=== PATIENT | female | born 1985 | race Caucasian/White ===

== ENCOUNTER 2023-08-02 10:57 | Outpatient (CLI) | payer BC, SELFPAY | END 2023-08-02 10:58 | disposition home or self-care (01) | PROVIDERS: PCP Nurse Practitioner Family; Visit Provider Nurse Practitioner Family | DX: Z00.00 Encounter for general adult medical examination without abnormal findings (principal); Z13.6 Encounter for screening for cardiovascular disorders; Z13.1 Encounter for screening for diabetes mellitus | CPT/HCPCS: 80061; 82947 ==

== ENCOUNTER 2023-09-22 10:48 | Outpatient (CLI) | payer BC, SELFPAY ==
--- NOTE | 2023-09-22 11:00 | CRLHL7_ITS ---
For Patients: As a result of the Century Cures Act, medical imaging exams and procedure reports are released immediately into your electronic medical record. You may view this report before your referring provider. If you have questions, please contact your health care provider. INDICATION: amenorrhea, LLQ pain COMPARISON: none TECHNIQUE: 2D hernández scale and color Doppler images were acquired of the pelvis using a transabdominal and transvaginal approach. FINDINGS: Sonographic images demonstrate a normal size and smooth outer contour of the uterus. Uterus measures 9.5 cm in length by 3.8 cm in AP diameter by 5.3 cm in transverse dimension. The myometrium has a normal uniform echotexture. The endometrial lining measures 10 mm in composite thickness. The right ovary measures 3.0 x 2.2 x 2.6 cm in size and the left ovary measures 3.4 x 2.2 x 2.3 cm. The ovaries demonstrate normal arterial and venous blood flow on color Doppler analysis. There are no suspicious fluid collections within the cul-de-sac. IMPRESSION: Normal ovarian size. No excess pelvic free fluid. Endometrial thickness 1 cm. No endometrial fluid or uterine fibroid. Dictated by Kaden Ku MD @ 09/22/2023 11:34:50 AM (Electronically Signed)
== END 2023-09-22 10:49 | disposition home or self-care (01) ==
PROVIDERS: PCP Nurse Practitioner Family; Visit Provider Nurse Practitioner Family
DX: N91.2 Amenorrhea, unspecified (principal); N94.9 Unspecified condition associated with female genital organs and menstrual cycle; R10.32 Left lower quadrant pain; R93.89 Abnormal findings on diagnostic imaging of other specified body structures
CPT/HCPCS: 76830; 76856; 93976

== ENCOUNTER 2024-08-04 08:23 | Outpatient (CLI) | payer BC, SELFPAY ==
--- OUTSIDE RECORDS SUMMARY | 2024-08-04 08:25 | XMS_ITS | Clinical Summary ---
Author Organization [facility] Address [place], [place] [address] Care Team Providers Care Char House Supervisor Name Role Phone Pcp, No Primary Care Provider Unavailabl e Allergies No known active allergies Medications Medication Sig Dispensed Refills Start Date End Date Status multivitamin with iron-mineral tablet Take 1 Tab by mouth. Active Active Problems Problem Noted Date Diagnosed Date Hx of hearing loss 08/14/2020 Immunizations Name Administration Dates Next Due COVID-19 vaccine (Hmizate.maBio NTech 30mcg/0.3mL) PFDEYA 09/03/2021,08/11/2021 Influenza, IIV4 09/05/2019 Tdap 12/12/2019,01/03/2016,09/07/2012 Family History Medical History Relation Name Comments Other Brother 1 ?prediabetes No Known Problems Brother 2 Nephrolithiasis Father Other Father prediabetes No Known Problems Maternal Grandfather No Known Problems Maternal Grandmother Macular degeneration Mother Meniere's disease Mother Thyroid Disease Mother s/p thyroide ctomy No Known Problems Paternal Grandfather No Known Problems Paternal Grandmother Cerebral palsy Sister 1 Marcelina Mykel's syndrome Sister 1 Marcelina No Known Problems Sister 2 No Known Problems Sister 3 Relation Name Status Comments Brother 1 Alive Brother 2 Alive Father Alive Maternal Grandfather Maternal Grandmother Mother Alive Paternal Grandfather Paternal Grandmother Sister 1 Marcelina Alive Sister 2 Alive Sister 3 Alive Social History Tobacco Use Types Packs/Day Years Used Date Smoking Tobacco: Never Smokeless Tobacco: Never Tobacco Cessation:Counseling Given: Yes Alcohol Use Standard Drinks/Week Comments No 0 (1 standard drink = 0.6 oz pur e alcohol) PHQ-2 Answer Date Recorded PHQ-2 TOTAL SCORE 0 08/11/2021 Social Connections Answer Date Recorded Frequency of Communication with Friends and Fami ly Not on file 11/22/2021 Financial Resource Strain Answer Date R ecorded Difficulty of Paying Living Expenses Not on file 11/22/2021 Difficulty of Paying Living Expenses Not on file 11/22/2021 Sex and Gender Information Value Date Recorded Sex Assigned at Not on file Gender Identity Not on file Sexual Orientation Not on file Obstetrics History Last Filed Vital Signs Vital Sign Reading Time Taken Comments Blood Pressure 119/77 08/11/2021 7:46 AM CDT Pulse 64 08/11/2021 7:46 AM CDT Temperature 36.7 ??C (98.1 ??F) 07/12/2018 10:26 AM C DT Respiratory Rate 16 06/02/2018 11:52 AM CDT Oxygen Saturation 100% 08/11/2021 7:46 AM CDT Inhaled Oxygen Concentration - - Weight 75.4 kg (166 lb 3.2 oz) 08/11/2021 7:46 A M CDT Height 155.6 cm (5' 1.26) 08/11/2021 7:46 AM CD T Body Mass Index 31.14 08/11/2021 7:46 AM CDT Plan of Treatment Health Maintenance Due Date Last Done Comments HIV for age 15-65 2000 Hepatitis C screening for age 18-79 2003 BMI (ht and wt on same day) for age 18+ 08/11/2022 08/11/2021, 07/12/2020, 09/09/2018, Additional history exists Depression screening for age 12+ 08/11/2022 08/11/2021, 07/15/2020, 07/12/2020, Additional history exists COVID-19 vaccine series ( season) 2024 09/03/2021, 08/11/2021 Influenza for age 9-49 07/23/2024 09/05/2019 Pap test for age 21-65 09/10/2028 3, 09/10/2023, 09/09/2018, Additional history exists Tetanus booster 12/12/2029 12/12/2019, 12/23, 09/07/2012 Tdap Completed 12/12/2019, 12/23, 09/07/2012 Pneumococcal series for age 6-64 Aged Out No longer eligible based on patient's age to complete this topic Procedures Procedure Name Priority Date/Time Associated Diagnosis Comments HPV THIN PREP Routine 09/10/2023 10:58 AM CDT from Last 3 Months or Most Recently Relevant to Health Maintenance Results * HPV HIGH RISK (09/10/2023 10:58 AM CDT) TYPE 16 Negative Negative 09/15/2023 2:07 PM CDT [facility] TYPE 18 Negative Negative 09/15/2023 2:07 PM CDT [facility] OTHER HIGH RISK TYPES Negative Negative 09/15/2023 2:07 PM CDT [facility] Other (Cervical/Vagina l) 09/10/2023 10:58 AM CDT 09/13/2023 12:36 PM CDT Narrative [facility] - 09/15/2023 2:07 PM CDT HPV types 16, 18, 31, 33, 35, 39, 45, 51, 52, 56, 58, 59, 66 and 68 DNA were undetectable or below the pre-set threshold. Methodology: Jeyson [place] 4800 HPV Test Chen Calvillo NP MICROBIOLOGY [facility] [address] [place] [address], [place] from Last 3 Months or Most Recently Relevant to Health Maintenance Care Teams Char House Supervisor Relationship Specialty Start Date End Date Pcp, No . PCP - General 01/13/23
--- OUTSIDE RECORDS SUMMARY | 2024-08-04 08:25 | XMS_ITS | Clinical Summary ---
Author Organization [facility] Address [address] [place] [id number] Care Team Providers Care Toll Settlement Clerk Name Role Phone Clinic, [facility] Primary Care Provider Allergies No known active allergies Medications Medication Sig Dispensed Refills Start Date End Date Status multivitamin, therapeutic with minerals (MULTI-VITAMIN) TABS tablet Take 1 tablet by mouth daily Active ONDANSETRON PO Take 4 mg by mouth every 6 hours as needed for nausea Active oxyCODONE-acetaminoph en (PERCOCET) 5-325 MG per tablet Take 1 tablet by mouth every 6 hours as needed for pain Active tamsulosin (FLOMAX) 0.4 MG capsule Take 0.4 mg by mouth daily Active HYDROcodone-acetamino phen (NORCO) 5-325 MG per tabletIndications:Joshua culus of distal right ureter Take 1-2 tablets by mouth every 4 hours as needed for severe pain (Moderate to Severe Pain) 20 tablet 06/03/2018 Active ondansetron (ZOFRAN) 4 MG tabletIndications:Joshua culus of distal right ureter Take 1 tablet (4 mg) by mouth every 8 hours as needed for nausea 10 tablet 06/03/2018 Active docusate sodium (COLACE) 100 MG tabletIndications:Joshua culus of distal right ureter Take 100 mg by mouth daily 20 tablet 1 06/03/2018 Active ciprofloxacin (CIPRO) 250 MG tabletIndications:Joshua culus of distal right ureter Take 1 tablet (250 mg) by mouth 2 times daily 6 tablet 06/03/2018 Active Social History Tobacco Use Types Packs/Day Years Used Date Smoking Tobacco: Never Smokeless Tobacco: Never Alcohol Use Standard Drinks/Week Comments No 0 (1 standard drink = 0.6 oz pur e alcohol) Sex and Gender Information Value Date Recorded Sex Assigned at Not on file Gender Identity Not on file Sexual Orientation Not on file Last Filed Vital Signs Vital Sign Reading Time Taken Comments Blood Pressure 100/65 06/03/2018 3:30 PM CDT Pulse 60 06/03/2018 12:41 PM CDT Temperature 37.4 ??C (99.3 ??F) 06/03/2018 3:30 PM CD T Respiratory Rate 10 06/03/2018 3:30 PM CDT Oxygen Saturation 96% 06/03/2018 3:30 PM CDT Inhaled Oxygen Concentration - - Weight 64.6 kg (142 lb 8 oz) 06/03/2018 12:41 PM CDT Height 154.9 cm (5' 1) 06/03/2018 12:41 PM CDT Body Mass Index 26.93 06/03/2018 12:41 PM CDT Plan of Treatment Not on file Medical Devices Implanted Type Area Informatics Application Analyst Device Identifier Shelf Expiration Date Model / Serial / Lot Stent Ureteral Contour Soft Percuflex [id number] Implanted:Qty: 1 on 06/03/2018 by Jorge Geiger MD at [facility] Stent Right: Ureter [employer] 02/09/2021 [id number] / / [id number] Care Teams Toll Settlement Clerk Relationship Specialty Start Date End Date [facility], [address] [address] PCP - General 06/02/18
--- OUTSIDE RECORDS SUMMARY | 2024-08-04 08:25 | XMS_ITS | Referral Summary ---
Author Organization [facility] Address [address] [place] [address] Care Team Providers Care Energy And Sustainability Manager Name Role Phone Clinic, [facility] Primary Care Provider Allergies No known active [...] on file Medical Devices Implanted Type Area Camelid Fiber Sorter Device Identifier Shelf Expiration Date Model / Serial / Lot Stent Ureteral Contour Soft Percuflex [id number] Implanted:Qty: 1 on 06/03/2018 by Jorge Geiger MD at [facility] Stent Right: Ureter [employer] 02/09/2021 [id number] / / [id number] Care Teams Energy And Sustainability Manager Relationship Specialty Start Date End Date [facility], [address] [address] PCP - General 06/02/18
== END 2024-08-04 08:24 | disposition home or self-care (01) ==
PROVIDERS: PCP Nurse Practitioner Family; Visit Provider Nurse Practitioner Family
DX: Z13.220 Encounter for screening for lipoid disorders (principal); Z13.1 Encounter for screening for diabetes mellitus
CPT/HCPCS: 80061; 82947

== ENCOUNTER 2025-02-15 11:36 | Outpatient (CLI) | payer BC, SELFPAY ==
[2025-02-15 13:18] LABS: Clue Cells No Clue Cells Seen (None Seen); Trichomonas No Trichomonas Seen (None Seen); Yeast No Yeast Seen (None Seen)
== END 2025-02-15 11:37 | disposition home or self-care (01) ==
PROVIDERS: PCP Nurse Practitioner Family; Visit Provider Nurse Practitioner Family
DX: N89.8 Other specified noninflammatory disorders of vagina (principal)
CPT/HCPCS: 87210

== ENCOUNTER 2025-07-10 08:20 | Outpatient (CLI) | payer BC, SELFPAY | END 2025-07-10 08:21 | disposition home or self-care (01) | PROVIDERS: PCP Nurse Practitioner Family; Visit Provider Nurse Practitioner Family | DX: Z00.00 Encounter for general adult medical examination without abnormal findings (principal); Z13.6 Encounter for screening for cardiovascular disorders; Z13.1 Encounter for screening for diabetes mellitus | CPT/HCPCS: 80061; 82947 ==

== ENCOUNTER 2025-11-06 17:23 | Outpatient (CLI) | payer BC, SELFPAY ==
--- NOTE | 2025-11-06 17:40 | CRLHL7_ITS ---
For Patients: As a result of the Century Cures Act, medical imaging exams and procedure reports are released immediately into your electronic medical record. You may view this report before your referring provider. If you have questions, please contact your health care provider. INDICATION: BILATERAL SCREENING MAMMOGRAM, ASYMPTOMATIC 40 Y/O FEMALE COMPARISON: BASELINE TECHNIQUE: Digital mammogram in CC and MLO projections including computer-aided detection (CAD) and tomosynthesis. BREAST COMPOSITION: There are scattered areas of fibroglandular density. FINDINGS: No suspicious findings. ASSESSMENT: BI-RADS 1 Negative RECOMMENDATION: Annual screening mammogram. A lay language report of this examination will be provided to the patient. Dictated by: Kaden Ku MD @ 11/07/2025 11:04:50 (Electronically Signed)
== END 2025-11-06 17:24 | disposition home or self-care (01) ==
LOC: MAMMO 17:24
PROVIDERS: PCP Nurse Practitioner Family; Visit Provider Nurse Practitioner Family
DX: Z12.31 Encounter for screening mammogram for malignant neoplasm of breast (principal)
CPT/HCPCS: 77063; 77067